=== PATIENT | male | born 1975 ===

== ENCOUNTER 2018-06-16 20:29 | Emergency (ER) | payer OTHER ==
[2018-06-16] MEDS ORDERED: Nitroglycerin TAB 0.4 MG* 0.4 MG TAB ONE (20:52)
--- NOTE | 2018-06-16 20:53 | UC ---
Cardiac HPI - HPI Summary HPI Summary: This is clemente Smith documenting for attending Francisco Davis MD. This patient is a 42 year old M presenting to [facility] accompanied by his with a chief complaint of left chest discomfort since 15:00. The patient rates the pain 0/10 in severity. The patient denies any pain, but describes his symptom as uneasiness. Symptoms aggravated by nothing. Symptoms alleviated by yawning. Patient reports shoulder pain and tingling in his left arm. Patient denies nausea, diaphoresis, abdominal pain, or shortness of breath. Patient denies hx of cardiac problems or HTN. The patient reports that he ate a salty snack around 15:00. - History of Current Complaint Stated Complaint: HIGH BLOOD PRESSURE Time Seen by Provider: 06/16/18 20:46 Hx Obtained From: Patient Onset/Duration: Gradual Onset, Lasting Hours, Still Present Timing: Constant Initial Severity: Mild Current Severity: Mild Chest Pain Location: Left Anterior Aggravating Factor(s): Nothing Alleviating Factor(s): Other - yawning Associated Signs & Symptoms: Positive: Chest Pain - chest discomfort, Tingling - in left arm. Negative: SOB, Diaphoresis, Nausea/Vomiting, Abdominal Pain - Allergy/Home Medications Allergies/Adverse Reactions: Allergies Allergy/AdvReac Type Severity Reaction Status Date / Time No Known Allergies Allergy Verified 02/03/16 21:17 PMH/Surg Hx/FS Hx/Imm Hx Previously Healthy: Yes Other Cardiovascular History: no hx of HTN - Surgical History Surgical History: None - Family History Known Family History: Positive: Hypertension - Social History Alcohol Use: None Substance Use Type: None Smoking Status (MU): Never Smoked Tobacco Review of Systems Skin: Negative - negative diaphoresis Cardiovascular: Chest Pain - chest discomfort Gastrointestinal: Negative - negative nausea Musculoskeletal: Arthralgia - left shoulder pain Neurological: Other - tingling in left arm All Other Systems Reviewed And Are Negative: Yes Physical Exam - Summary Physical Exam Summary: General: well-appearing, no pain distress Skin: warm, color reflects adequate perfusion, dry Head: normal Eyes: EOMI, AILYN ENT: normal Neck: supple, nontender Respiratory: CTA, breath sounds present Cardiovascular: RRR Abdomen: soft, nontender Bowel: present Musculoskeletal: normal, strength/ROM intact Neurological: sensory/motor intact, A&O x3 Psychological: affect/mood appropriate Triage Information Reviewed: Yes Vital Signs Reviewed: Yes Diagnostics - EKG EKG Comments: EKG at 20:44 NSR at [address] elevation in the anterior leads concave up with no reciprocal changes, no ectopy Cardiac Rate: NL - at 65 bpm Cardiac Rhythm: Sinus: Normal Ectopy: None ST Segment: Non-Specific - ST elevations in anterior leads concave up with no reciprocal changes - Assessment/Plan Course Of Treatment: I TOLD THE PATIENT WERE WERE GOING TO SEND HIM TO THE ED FOR HIS CHEST PAIN AND ELEVATED BLOOD PRESSURE. THE PATIENT DECLINED AND HAD HIS BRING HIM TO THE ED BY POV. I TOLD HIM TO CALL AN AMBULANCE AT ANY TIME TO GET TAKEN TO THE EMERGENCY DEPARTMENT. - Clinical Impression Provider Diagnoses: CHEST PAIN. HYPERTENSIVE URGENCY Discharge - Sign-Out/Discharge Documenting (check all that apply): Patient Departure - Discharge Plan Condition: Guarded Disposition: HOME-RECOMMEND TO ED Patient Education Materials: Chest Pain (ED), Hypertensive Crisis (ED) Referrals: Elly Jacobs MD [Primary Care Provider] - Additional Instructions: GO DIRECTLY TO THE EMERGENCY DEPARTMENT FOR FURTHER EVALUATION AND TREATMENT. - Billing Disposition and Condition Condition: GUARDED Disposition: Home-Recommend to ED
[2018-06-16 20:56] VITALS: BP 195/110
== END 2018-06-16 21:03 | disposition home health service (06) ==
LOC: UCEAST 20:29
DX: R07.89 Other chest pain (principal); I16.0 Hypertensive urgency; M25.512 Pain in left shoulder; R20.2 Paresthesia of skin
CPT/HCPCS: 93005; 99212; A9270-GY; G0463

== ENCOUNTER 2018-06-16 21:17 | Emergency (ER) | payer OTHER ==
[2018-06-16] MEDS ORDERED: LORazepam INJ* 2 MG/ML 1 ML VIAL IV PUSH ONE (22:34)
[2018-06-16] MEDS ORDERED: Ketorolac INJ* 30 MG/ML 1 ML VIAL IV PUSH ONE (22:34)
[2018-06-16 23:10] LABS: ABS Basophils 0.2 10^3/ul (0-0.2); ABS Eosinophils 0.7 10^3/ul (0-0.6); ABS Lymphocytes 3.8 10^3/ul (1.0-4.8); ABS Monocytes 0.7 10^3/ul (0-0.8); ABS Neutrophils 5.2 10^3/ul (1.5-7.7); ABS Nucleated RBC 0 10^3/ul; Eosinophil % 6.9 % (0-6); Hematocrit 41 % (42-52); Hemoglobin 13.7 g/dl (14.0-18.0); Lymphocyte % 35.9 % (25-47); Mean Corpuscular HGB Conc 34 g/dl (31-36); Mean Corpuscular Hemoglobin 27 pg (27-31); Mean Corpuscular Volume 81 fL (80-94); Mean Platelet Volume 7.5 um3 (7.4-10.4); Nucleated Red Blood Cells % 0; Platelet Count 312 10^3/ul (150-450); Red Blood Count 5.03 10^6/ul (4.00-5.40); Red Cell Distribution Width 14 % (10.5-15); White Blood Count 10.6 10^3/ul (3.5-10.8)
[2018-06-16 23:19] LABS: INR 0.9 (0.77-1.02)
--- NOTE | 2018-06-16 23:21 | ED ---
HPI Chest Pain - HPI Summary HPI Summary: This is clemente Gill documenting for attending Dr. Kenny Webster This patient is a 42 year old M presenting to [facility] accompanied by his with a chief complaint of still present left lateral chest/armpit pain since 1500. Pt describes the pain as an uneasiness. He denies pain radiation, N/V, SOB, taking home meds, dyspnea, pain with movement. Pt states he measured BP [employer] , 180+/114, no change after 15 minutes. He endorses dry mouth. - History of Current Complaint Chief Complaint: EDHypertension Time Seen by Provider: 06/16/18 22:14 Hx Obtained From: Patient Onset/Duration: Started Hours Ago, Still Present Timing: Constant Initial Severity: Mild Current Severity: Mild Pain Intensity: 0 Pain Scale Used: 0-10 Numeric Chest Pain Location: Left Lateral Chest Pain Radiates: No Character: Other: - "uneasiness" Aggravating Factor(s): Nothing Alleviating Factor(s): Nothing Associated Signs and Symptoms: Positive: Chest Pain. Negative: Shortness of Breath, Fever, Nausea, Vomiting - Allergy/Home Medications Allergies/Adverse Reactions: Allergies Allergy/AdvReac Type Severity Reaction Status Date / Time No Known Allergies Allergy Verified 06/16/18 21:19 PMH/Surg Hx/FS Hx/Imm Hx Endocrine/Hematology History: Denies: Hx Sickle Cell Disease Cardiovascular History: Denies: Hx Myocardial Infarction Respiratory History: Denies: Hx Chronic Obstructive Pulmonary Disease (COPD) Sensory History: Reports: Hx Contacts or Glasses Opthamlomology History: Reports: Hx Contacts or Glasses EENT History: Denies: Hx Deafness Infectious Disease History: No Infectious Disease History: Denies: Traveled Outside the [place] in Last 30 Days - Family History Known Family History: Positive: Hypertension - Social History Lives: With Family Alcohol Use: None Substance Use Type: Reports: None Smoking Status (MU): Never Smoked Tobacco Review of Systems Negative: Fever Positive: Chest Pain Negative: Shortness Of Breath Negative: Vomiting, Nausea Positive: Myalgia - right armpit All Other Systems Reviewed And Are Negative: Yes Physical Exam - Summary Physical Exam Summary: VITAL SIGNS: Reviewed. GENERAL: Patient is a well-developed and nourished male who is lying comfortable in the stretcher. Patient is not in any acute respiratory distress. HEAD AND FACE: No signs of trauma. No ecchymosis, hematomas or skull depressions. No sinus tenderness. EYES: PERRLA, EOMI x 2, No injected conjunctiva, no nystagmus. EARS: Hearing grossly intact. Ear canals and tympanic membranes are within normal limits. MOUTH: Oropharynx within normal limits. NECK: Supple, trachea is midline, no adenopathy, no JVD, no carotid bruit, no c- spine tenderness, neck with full ROM. CHEST: Symmetric, no tenderness at palpation LUNGS: Clear to auscultation bilaterally. No wheezing or crackles. CVS: Regular rate and rhythm, S1 and S2 present, no murmurs or gallops appreciated. ABDOMEN: Soft, non-tender. No signs of distention. No rebound no guarding, and no masses palpated. Bowel sounds are normal. EXTREMITIES: FROM in all major joints, no edema, no cyanosis or clubbing. NEURO: Alert and oriented x 3. No acute neurological deficits. Speech is normal and follows commands. SKIN: Dry and warm PSYCH: Appears somewhat anxious. Triage Information Reviewed: Yes Vital Signs On Initial Exam: Initial Vitals Temp Pulse Resp BP Pulse Ox 99 F 75 16 172/99 100 06/16/18 21:20 06/16/18 21:20 06/16/18 21:20 06/16/18 21:20 06/16/18 21:20 Vital Signs Reviewed: Yes Diagnostics - Vital Signs Vital Signs Temp Pulse Resp BP Pulse Ox 06/16/18 23:01 19 06/16/18 22:59 14 173/110 06/16/18 22:50 18 06/16/18 22:47 14 163/124 06/16/18 22:45 15 06/16/18 22:34 14 177/110 06/16/18 21:20 99 F 75 16 172/99 100 - Laboratory Lab Results: Lab Results 06/16/18 Range/Units 23:02 WBC 10.6 (3.5-10.8) 10^3/ul RBC 5.03 (4.00-5.40) 10^6/ul Hgb 13.7 L (14.0-18.0) g/dl Hct 41 L (42-52) % MCV 81 (80-94) fL MCH 27 (27-31) pg MCHC 34 (31-36) g/dl RDW 14 (10.5-15) % Plt Count 312 (150-450) 10^3/ul MPV 7.5 (7.4-10.4) um3 Neut % (Auto) 49.5 (38-83) % Lymph % (Auto) 35.9 (25-47) % Wilkes % (Auto) 6.2 (0-7) % Eos % (Auto) 6.9 H (0-6) % Baso % (Auto) 1.5 (0-2) % Absolute Neuts (auto) 5.2 (1.5-7.7) 10^3/ul Absolute Lymphs (auto) 3.8 (1.0-4.8) 10^3/ul Absolute Monos (auto) 0.7 (0-0.8) 10^3/ul Absolute Eos (auto) 0.7 H (0-0.6) 10^3/ul Absolute Basos (auto) 0.2 (0-0.2) 10^3/ul Absolute Nucleated RBC 0 10^3/ul Nucleated RBC % 0 Result Diagrams: 06/16/18 23:02 06/16/18 23:02 Lab Statement: Any lab studies that have been ordered have been reviewed, and results considered in the medical decision making process. - Radiology CXR Xray Interpretation: No Acute Changes Radiology Interpretation Completed By: ED Physician - No acute process. - EKG 2133 Cardiac Rate: NL - 62 EKG Rhythm: Sinus Rhythm ST Segment: Normal Ectopy: None EKG Interpretation: nl axis, nl interval, no ischemic changes. Re-Evaluation - Re-Evaluation First Eval Re-Evaluation Time: 23:45 Change: Improved Comment: pain resolved, BP improved, rx lisinoprol. Chest Pain Course/Dx - Diagnoses Provider Diagnoses: Hypertension Discharge - Sign-Out/Discharge Documenting (check all that apply): Patient Departure - discharge - Discharge Plan Condition: Stable Disposition: HOME Prescriptions: Lisinopril TAB* [Prinivil TAB 5 MG*] 5 mg PO DAILY #30 tab Patient Education Materials: Hypertension (ED) Referrals: Elly Jacobs MD [Primary Care Provider] - 3 Days Additional Instructions: Return to the emergency department for any new or worsening symptoms. - Billing Disposition and Condition Condition: STABLE Disposition: Home
[2018-06-16 23:28] LABS: EGFR Non-African American 113.1 (>60)
[2018-06-17 00:59] VITALS: BP 157/101
--- NOTE | 2018-06-17 07:51 | RAD ---
Indication: Chest pain; uneasy feeling at the LEFT axilla. Comparison: October 18, 2004 Technique: Upright AP 2238 hours Report: Clear lungs and pleural spaces. Negative for pneumothorax. The heart, pulmonary vasculature, and mediastinal contours are unremarkable. Unremarkable osseous structures and soft tissue contours. IMPRESSION: #. No evidence for acute intrathoracic disease. R0
== END 2018-06-17 00:58 | disposition home or self-care (01) ==
LOC: ED 21:17
DX: I10 Essential (primary) hypertension (principal); R07.9 Chest pain, unspecified; M79.621 Pain in right upper arm
CPT/HCPCS: 36415; 71045; 80053; 82550; 83605; 83735; 84484; 85025; 85610; 85730; 93005; 96374; 96375; 99284; J1885; J2060